=== PATIENT | female | born 1985 ===

== ENCOUNTER 2024-10-05 08:37 | Emergency (ER) | payer SELFPAY ==
[2024-10-05] MEDS ORDERED: Sodium Chloride 0.9% 1,000 ML IV ONE (08:53)
[2024-10-05] MEDS ORDERED: methylPREDNISolone Sod Succ 125 MG in Sodium Chloride 0.9% 100 ML IV ONE (08:54)
[2024-10-05 09:11] LABS: BASOPHILS PERCENT AUTO 0.4 % (0.0-1.0); EOSINOPHILS PERCENT AUTO 2.6 % (1.0-3.0); HEMATOCRIT 42.7 % (37.0-47.0); HEMOGLOBIN 13.9 g/dL (12.0-16.0); MEAN CORPUSCULAR HEMOGLOBIN 28.8 pg (27.0-34.0); MEAN CORPUSCULAR HGB CONC 32.6 g/dL (33.0-35.0); MEAN CORPUSCULAR VOLUME 88.4 fL (80-100); PLATELET COUNT,PLT 359 10^3/uL (150-450); RED BLOOD CELL COUNT 4.83 10^6/uL (4.2-5.4); WHITE BLOOD CELL COUNT,WBC 7.8 10^3/uL (5.0-10.0)
[2024-10-05] MEDS: EPINEPHrine 1 MG/ML SDV IM ONE ×2 (09:27→10:19)
[2024-10-05 09:29] LABS: ALANINE AMINOTRANSFERASE,ALT 20 U/L (14-59); ALBUMIN 3.5 g/dL (3.4-5.0); ALKALINE PHOSPHATASE 84 U/L (46-116); ANION GAP 11.4 mEq/L (7-13); ASPARTATE AMNIOTRANSFERASE,AST 12 U/L (15-37); BILIRUBIN TOTAL 0.3 mg/dL (0.2-1.0); BLOOD UREA NITROGEN,BUN 9 mg/dL (7-18); BUN/CREATININE RATIO 11.4 (No establ ref range); CALCIUM 8.9 mg/dL (8.5-10.1); CARBON DIOXIDE,CO2 30 mmol/L (21-32); CHLORIDE,CL 103 mmol/L (98-107); CREATINE KINASE,CK 44 U/L (16-191); CREATININE 0.79 mg/dL (0.55-1.02); GLUCOSE RANDOM 106 mg/dL (70-99); POTASSIUM,K 4.4 mmol/L (3.5-5.1); SODIUM,NA 140 mmol/L (136-145)
[2024-10-05 09:30] LABS: ESTIMATED GFR 98 mL/min (>=60); HCG QUALITATIVE,SERUM NEGATIVE (NEGATIVE)
[2024-10-05] MEDS: diphenhydrAMINE 50 MG/ML SDV IVPUSH ONE ×2 (09:31→10:18)
[2024-10-05] MEDS: methylPREDNISolone Sodium Succinate 125 MG/2 ML SDV IVPUSH ONE (09:35)
[2024-10-05] MEDS: Sodium Chloride 0.9% 500 ML IV ONE (09:50)
[2024-10-05] MEDS: Iopamidol 612 MG/ML 100 ML Bottle IVPUSH ONE (10:11)
[2024-10-05] MEDS: Sodium Chloride 0.9% 10 ML Syringe FLUSH PRN (10:12)
[2024-10-05] MEDS ORDERED: Flumazenil 0.1 MG/ML 5 ML MDV IVPUSH PRN ×2 (10:44→11:07)
[2024-10-05] MEDS: LORazepam 2 MG/ML SDV IVPUSH ONE ×2 (10:54→11:23)
[2024-10-05] MEDS: Clindamycin HCl 150 MG Cap PO ONE (12:54)
[2024-10-05] MEDS: Ampicillin/Sulbactam Na 3 GM in Sodium Chloride 0.9% 100 ML IV ONE (13:05)
== END 2024-10-05 13:30 | disposition home or self-care (01) ==
LOC: DL.ED 08:37
DX: T63.451A Toxic effect of venom of hornets, accidental (unintentional), initial encounter (principal); L03.211 Cellulitis of face
CPT/HCPCS: 36415; 70487; 80053; 82550; 84484; 84703; 85025; 96365; 96372; 96375; 96376; 99283; 99284-25; A9270-GY; J0171; J0295; J1200; J2060; J2919; J3490; J7030; Q9967